=== PATIENT | male | born 1955 | race Caucasian/White ===

== ENCOUNTER 2018-08-07 09:24 | Outpatient (CLI) | payer BC ==
[2018-08-07 10:09] LABS: Estimated GFR-MDRD - POC Greater than 90
--- NOTE | 2018-08-11 16:52 | MRI ---
MRI PROSTATE: HISTORY: Elevated PSA. Negative prostate biopsy one year ago. TECHNIQUE: Multiplanar, multisequence MR images were obtained of the prostate with and without IV contrast. FINDINGS: There is moderate hypertrophy of the central gland, consistent with BPH. Estimated prostate volume i s 57 mL. No suspicious T2 signal abnormality is seen within the peripheral zone of the prostate. No restricte d diffusion or low signal on the ADC map is seen within the peripheral zone of the prostate. In the mid gland of the left prostate, within the central zone, there is a 1.3 cm area of low T2 sign al. This does not demonstrate restricted diffusion or significantly abnormal enhancement. No other potentially suspicious lesions are identified. The neurovascular bundles are intact. The seminal vesicles are intact. No pelvic adenopathy is appr eciated. No marrow signal abnormality is present. IMPRESSION: The lesion in the central gland of the prostate, along the left aspect, is a PI-RADS category 3-Inter mediate lesion. The presence of a clinically significant cancer is equivocal. As stated above, no a bnormal significant enhancement is seen in this region to upgrade this potential lesion to a PI-RADS 4. POS: RYAN
== END 2018-08-07 09:25 | disposition home or self-care (01) ==
LOC: TBSIIMAG 09:24
PROVIDERS: ATTEND Urology
DX: R97.20 Elevated prostate specific antigen [PSA] (principal); N42.9 Disorder of prostate, unspecified
CPT/HCPCS: 72197; 82565

== ENCOUNTER 2018-09-01 06:48 | Outpatient (CLI) | payer BC ==
[2018-09-01 16:13] LABS: Hemoglobin 16.2 g/dL (14.0-18.0); Mean Corpuscular HGB CONC 34.4 g/dL (32.0-36.0); Mean Corpuscular Volume 89.9 fL (78.0-98.0); Mean Platelet Volume 9.8 fL (7.4-10.4); Platelet Count 191 thou/uL (130-400); RBC Distribution Width 12.5 % (11.5-14.5); Red Blood Cell (RBC) Count 5.24 mill/uL (4.70-6.10); White Blood Cell (WBC) Count 8.4 thou/uL (4.8-10.8)
[2018-09-01 16:16] LABS: Bilirubin Negative (Negative); Blood, Urine Negative (Negative); Clarity CLEAR (Clear); Glucose, Urine (Dipstick) Negative (Negative); Leukocyte Negative (Negative); Nitrite Negative (Negative); Protein, Urine (Dipstick) Negative (Neg-Trace); Specific Gravity, Urine 1.013 (1.002-1.036); pH, Urine 6.5 (5.0-9.0)
[2018-09-01 16:18] LABS: Bacteria/HPF None Seen HPF (None Seen); Hyaline Casts/LPF 0-3 HYALINE CAST LPF (0-3 Hyaline); Pathc Cast-AUWi Flag 0.14 (0-2.49); RBC/HPF 0-3 HPF (0-3); Squamous Epithelial 0-3 HPF (0-3); WBC/HPF 0-3 HPF (0-3)
[2018-09-01 16:20] LABS: INR-International Normal Ratio 0.9; PTT 29.3 SEC (22.9-36.1); Prothrombin Time 12.3 SEC (12.0-14.7)
[2018-09-01 16:37] LABS: Anion Gap 15 mmol/L (10-20); BUN (Urea Nitrogen) 15 mg/dL (8.4-25.7); Calc. Creatinine Clearance 0 mL/min (70-130); Calcium 9.5 mg/dL (7.8-10.44); Carbon Dioxide 22 mmol/L (23-31); Chloride 106 mmol/L (98-107); Estimated GFR-MDRD Greater than 90; Glucose 86 mg/dL (80-115); Potassium 4.2 mmol/L (3.5-5.1); Sodium 139 mmol/L (136-145)
== END 2018-09-01 06:49 | disposition home or self-care (01) ==
LOC: LABBT 06:48
PROVIDERS: ATTEND Urology
DX: Z01.818 Encounter for other preprocedural examination (principal)
CPT/HCPCS: 80048; 81001; 85027; 85610; 85730; 87086; 93005; 93010

== ENCOUNTER 2018-09-10 05:55 | Day surgery (SDC) | payer BC ==
[2018-09-01 15:22] VITALS: BMI 32.1
[2018-09-10] MEDS ORDERED: cefTRIAXone\\ROCEPHIN 1 GM in Sodium Chloride 0.9% 100 ML IVPB SCH (07:00)
[2018-09-10] MEDS ORDERED: Fentanyl 100 MCG/2 ML VIAL ONE (07:15)
[2018-09-10] MEDS ORDERED: Propofol 1,000 MG/100 ML VIAL IV ONE (07:16)
--- NOTE | 2018-09-10 09:27 | OP ---
DATE OF PROCEDURE: 09/10/2018 SERVICE: Urology. PREOPERATIVE DIAGNOSIS: Elevated PSA. POSTOPERATIVE DIAGNOSIS: Elevated PSA. PROCEDURE PERFORMED: MRI fusion transrectal ultrasound-guided biopsy using the [employer] system. INDICATION FOR PROCEDURE: Mr. Denney is a 63-year-old white male, who presented to hi with an elevated PSA, which is corrected to 8.6 with accounting for his finasteride usage. He has previously had a biopsy by Dr. Lundberg in 2017, which was negative, but his PSA has continued to rise. He had a PCA3 test, which demonstrated concern for prostate cancer and an MRI demonstrated a BI-RADS 4 lesion on the left lateral aspect of the prostate. He is now coming in for targeted biopsies along with random biopsies in the operating room. DESCRIPTION OF PROCEDURE: After identification of armband and verification of consent, the patient was brought back to the operating room. He underwent total intravenous anesthesia. He was placed in a left lateral decubitus position and positioned under the [employer]Nav system. After appropriate time-out, a transrectal ultrasound was placed into the patient's rectum and measurements were taken of the prostate, which totaled a volume of 62.7 mL. The fusion process was then carried out in the standard fashion using the [employer]Nav system until adequate fusion had been achieved between the MRI of the prostate and the ultrasound. The lesion was noted to be on the left lateral aspect of the prostate just as the MRI had demonstrated. Using the [employer]Nav system, targeted biopsies were taken x4 at the site of the lesion in a cross-babb technique. Subsequently, random biopsies were done for a total of 13 cores with an extra biopsy taken of the left lateral aspect of the prostate for additional biopsies in that region. Upon completion, there was minimal bleeding. The rectal ultrasound was removed. The patient was returned back to his normal positioning, awakened, and taken to Day Stay directly. COMPLICATIONS: None. ESTIMATED BLOOD LOSS: Minimal. RETAINED TUBES AND DRAINS: None. SPECIMENS: Prostate biopsies. DISPOSITION: The patient will be discharged home and follow up with me in a few weeks for postop check and to review his biopsy results. Job ID: [id number]
[2018-09-10] MEDS ORDERED: ePHEDrine/0.9% NaCl/PF SYRINGE 50 mg/10 ml ONE (15:49)
[2018-09-10] MEDS ORDERED: PROPOFOL 200 MG/20 ML VIAL ONE (15:49)
== END 2018-09-10 09:48 | disposition home or self-care (01) ==
LOC: SDC 05:55
PROVIDERS: ATTEND Urology
PROC: 0VB03ZX Excision of Prostate, Percutaneous Approach, Diagnostic (ICD-10-PCS; principal; 2018-09-10)
DX: N41.0 Acute prostatitis (principal); N42.89 Other specified disorders of prostate; Z79.899 Other long term (current) drug therapy; F17.200 Nicotine dependence, unspecified, uncomplicated
CPT/HCPCS: 88305; 88341; 88342; J0696; J2704; J3010; J7050

== ENCOUNTER 2020-02-02 09:45 | Outpatient (CLI) | payer BC ==
[2020-02-02 10:12] LABS: Estimated GFR-MDRD - POC Greater than 90
--- NOTE | 2020-02-02 11:45 | MRI ---
EXAM: MRI of the pelvis/prostate without and with contrast HISTORY: elevated PSA. COMPARISON: 08/07/2018 TECHNIQUE: Multiplanar multisequence MR images were obtained of the pelvis without and with IV contra st. Evaluation of this exam was performed with a [employer] workstation. FINDINGS: Central gland: Moderate hypertrophy of the central gland consistent with BPH. Prostate volume is tu mated at 52 mL. There is a stable 1.3 cm well-circumscribed low T2 signal lesion along the left aspect of the prostate near the mid gland. Peripheral zone: No restricted diffusion is seen. No low signal on ADC map. Seminal vesicles: Intact without abnormality Neurovascular bundles: Intact Pelvic lymph nodes: No pelvic adenopathy Other visualized intrapelvic structures: Unremarkable Osseous structures: No marrow signal abnormality IMPRESSION: PI-RADS Category 2-low likelihood that a clinically significant cancer is present. There is a stable well-circumscribed low T2 signal lesion along the left central gland. This may represent a BPH nodule.
== END 2020-02-02 09:46 | disposition home or self-care (01) ==
LOC: TBSIIMAG 09:45
PROVIDERS: ATTEND Urology
DX: R97.20 Elevated prostate specific antigen [PSA] (principal); N42.89 Other specified disorders of prostate
CPT/HCPCS: 72197; 82565

== ENCOUNTER 2022-11-19 09:34 | Outpatient (CLI) | payer BC ==
[2022-11-19] MEDS ORDERED: Magnevist 469MG/ML 20 ML VIAL ONE (09:55)
== END 2022-11-19 09:35 | disposition home or self-care (01) ==
LOC: TBSIIMAG 09:34
PROVIDERS: ATTEND Urology
DX: R97.20 Elevated prostate specific antigen [PSA] (principal)
CPT/HCPCS: 72197; 82565

== ENCOUNTER 2023-02-19 08:16 | Outpatient (CLI) | payer BC ==
[2023-02-19 09:29] LABS: Anion Gap 15 mmol/L (10-20); BUN (Urea Nitrogen) 17 mg/dL (8.4-25.7); Calc. Creatinine Clearance 0 mL/min (70-130); Calcium 9.8 mg/dL (7.8-10.44); Carbon Dioxide 24 mmol/L (23-31); Chloride 106 mmol/L (98-107); Estimated GFR 89; Glucose 124 mg/dL (80-115); Potassium 4.3 mmol/L (3.5-5.1); Sodium 141 mmol/L (136-145)
[2023-02-19 09:37] LABS: Hemoglobin 17.5 g/dL (13.5-17.5); Mean Corpuscular HGB CONC 32.6 g/dL (32.0-36.0); Mean Corpuscular Hemoglobin 29.6 pg (27.0-33.0); Mean Corpuscular Volume 90.5 fl (81.2-95.1); PTT 30.3 sec (22.0-33.0); Platelet Count 208 10x3/uL (150-450); Prothrombin Time 10.3 sec (9.5-12.1); RBC Distribution Width 14.5 % (11.5-14.5); Red Blood Cell (RBC) Count 5.92 10x6/uL (4.32-5.72); White Blood Cell (WBC) Count 7.7 10x3/uL (3.5-10.5)
== END 2023-02-19 08:17 | disposition home or self-care (01) ==
LOC: LABBT 08:16
PROVIDERS: ATTEND Urology
DX: Z01.812 Encounter for preprocedural laboratory examination (principal); D49.4 Neoplasm of unspecified behavior of bladder
CPT/HCPCS: 80048; 85027; 85610; 85730; 87086

== ENCOUNTER 2023-02-24 08:13 | Day surgery (SDC) | payer BC ==
[2023-02-19 08:45] VITALS: BMI 38.3
[2023-02-24] MEDS ORDERED: mitoMYcin 40 MG in Sodium Chloride 0.9% 40 ML I-VESIC SCH (09:00)
[2023-02-24] MEDS ORDERED: fentaNYL 50 mcg/mL 1 mL Vial ONE (11:09)
[2023-02-24] MEDS ORDERED: SUGAMMADEX SODIUM 200 MG/2 ML VIAL ONE (11:09)
[2023-02-24] MEDS ORDERED: Iopamidol 15 ML ONE (11:09)
[2023-02-24] MEDS ORDERED: Levofloxacin 500 mg/D5W 100 ml Premix Bag ONE (11:22)
[2023-02-24] MEDS ORDERED: Rocuronium Bromide 10 MG/ML (10ML VIAL) ONE (11:34)
[2023-02-24] MEDS ORDERED: PROPOFOL 200 MG/20 ML VIAL ONE (11:34)
== END 2023-02-24 16:14 | disposition home or self-care (01) ==
LOC: SDC 08:13
PROVIDERS: ATTEND Urology
PROC: BT14ZZZ Fluoroscopy of Kidneys, Ureters and Bladder (ICD-10-PCS; principal; 2023-02-24)
DX: R93.41 Abnormal radiologic findings on diagnostic imaging of renal pelvis, ureter, or bladder (principal)
CPT/HCPCS: 74420; J1956; J2704; J3010; J9280; Q9967